=== PATIENT | male | born 1960 | race African-American/Black ===

== ENCOUNTER 2025-09-27 18:06 | Emergency (ER) | payer OTHER ==
[~2025-09-27] VITALS: Ht 188 cm; Wt 113.5 kg
[2025-09-27 18:31] VITALS: PULSE 95; RESP 25; O2SAT 99
--- NOTE | 2025-09-27 18:46 | ED.PDOC ---
HPI (NEURO) HPI Comments 64-year-old male with a past medical history of hypertension has come via EMS from [facility] with chief complaints of tonic-clonic seizure. As per EMS patient was found having a seizure lasting 2 minutes, no tongue biting, no urinary incontinence with postictal state of confusion lasting about an hour. Patient was also unable to form words properly. Patient reports that he has never had a history of seizure in the past. Vitals in the EMS were BP 162/106, heart rate 106, SpO2 98% in room air and blood glucose level 148. On initial assessment, patient was A&O x4, in moderate distress, having difficulty speaking complete sentences, but was slowly able to report feeling that his tongue was getting heavy in the afternoon with slurring of speech and that he can not remember having a seizure activity. He denies any chest pain, shortness of breath, nausea, vomiting, headache, abdominal discomfort or any other symptoms. Patient has been dismissed from [facility]. He also reports not taking his antihypertensive medication for the past 2 days in [facility]. We are doing further workup. Chief Complaint: Seizure Time Seen by MD: 18:20 Reviewed Notes: Nurses Notes, Surgical Scrub Technician Notes, Medications, Allergies Information Source: Patient, Emergency Med Personnel Mode of Arrival: EMS Severity: Moderate Timing: Minutes Duration: Minutes Prehospital treatment: None Seizure Quality: Tonic-clonic Onset: At rest Circumstances: Spontaneous Symptoms: Difficulty talking Before: Normal After: Confusion History of: Hypertension Modifying factors: Nothing Associated Signs and Symptoms: None Past Medical History PAST MEDICAL HISTORY: HTN Surgical History: Denies all surgeries Family History Family History: Reviewed,noncontributory to illness Social History Smoker: Non-Smoker Alcohol: Occasionally (Reports drinking a few beers every 4 days) Drugs: Denies Drug Use Lives In: Home, Other (Patient was in [facility] when seizure activity occurred) Constitutional: denies: chills, diaphoresis, fatigue, fever, malaise, sweats, weakness, others EENTM: denies: blurred vision, double vision, ear bleeding, ear discharge, ear drainage, ear pain, ear ringing, eye pain, eye redness, hearing loss, mouth pain, mouth swelling, nasal discharge, nose bleeding, nose congestion, nose pain, photophobia, tearing, throat pain, throat swelling, voice changes, others Respiratory: denies: cough, hemoptysis, orthopnea, SOB at rest, shortness of breath, SOB with excertion, stridor, wheezing, others Cardiovascular: denies: chest pain, dizzy spells, diaphoresis, Dyspnea on exertion, edema, irregular heart beat, left arm pain, lightheadedness, palpitations, PND, syncope, others Gastrointestinal: denies: abdomen distended, abdominal pain, blood streaked bowels, constipated, diarrhea, dysphagia, difficulty swallowing, hematemesis, melena, nausea, poor appetite, poor fluid intake, rectal bleeding, rectal pain, vomiting, others Genitourinary: denies: burning, dysuria, flank pain, frequency, hematuria, incontinence, penile discharge, penile sore, pain, testicle pain, testicle swelling, urgency, others Neurological: reports: speech problems (Difficulty forming words), others (Reports tongue feels heavy); denies: dizziness, fainting, headache, left sided numbness, left sided weakness, numbness, paresthesia, pre-existing deficit, right sided numbness, right sided weakness, seizure, tingling, tremors, weakness Musculoskeletal: denies: back pain, gout, joint pain, joint swelling, muscle pain, muscle stiffness, neck pain, others Integumetry: denies: bruises, change in color, change in hair/nails, dryness, laceration, lesions, lumps, rash, wounds, others Allergic/Immunocompromised: denies: Difficulty Healing, Frequent Infections, Hives, Itching, others Hematologic/Lymphatic: denies: anemia, blood clots, easy bleeding, easy bruis ing, swollen glands, others Endocrine: denies: excessive hunger, excessive sweating, excessive thirst, exc essive urination, flushing, intolerance to cold, intolerance to heat, unexplained weight gain, unexplained weight loss, others Psychiatric: denies: anxiety, bipolar disorder, depression, hopeless, panic disorder, schizophrenia, sleepless, suicidal, others Physical Exam General Appearance: Mild Distress HEENT: Normal ENT Inspection, Other (Difficulty forming complete sentences) Neck: Full Range of Motion, Non-Tender, Normal, Normal Inspection Respiratory: No Accessory Muscle Use, No Respiratory Distress, Normal Breath Sounds, Other (No rhonchi, stridor or wheezing heard on auscultation) Cardiovascular: No Edema, No JVD, No Murmur Breast Exam: Deferred Gastrointestinal: No Organomegaly, Non Tender, No Pulsatile Mass, Normal Bowel Sounds Genitalia: Deferred Pelvic: Deferred Rectal: Deferred Extremities: Normal range of motion, Non-tender, No pedal edema Neurologic: Other (Decreased power in bilateral limbs 3/5, 5/5 in upper extremities, no facial drooping) Cerebellar Function: Unable to Test Reflexes: Normal Skin: Normal Color Lymphatic: Other (No cervical adenopathy palpated) Was a procedure done? Was a procedure done?: No Differential Diagnosis (SZ) Seizure: Psychogenic Seizure, Drug Ingestion, Other (Tonic-clonic seizure) X-Ray, Labs, Meds, VS Vital Signs Date Time Temp Pulse Resp B/P (MAP) Pulse Ox O2 Delivery O2 Flow Rate FiO2 09/27/25 20:31 153/88 09/27/25 20:08 90 09/27/25 20:00 98.1 99 13 153/88 (109) 98 98.1 09/27/25 19:55 171/103 09/27/25 19:15 13 98 Room Air* 0 21 09/27/25 18:50 93 24 153/92 (112) 99 09/27/25 18:31 98.2 95 25 171/108 (129) 99 98.2 09/27/25 18:31 95 25 99 Room Air* 0 21 09/27/25 18:31 98.9 102 16 162/106 95 98.9 Lab Test 09/27/25 19:59 09/27/25 18:42 Range/Units Urine Color Light-yellow Yellow Urine Clarity Clear Clear Urine pH 6.5 5.0-9.0 Urine Specific [place] 1.015 1.001-1.035 Urine Protein 1+ H Negative Urine Ketones 2+ H Negative Urine Blood Negative Negative /uL Urine Nitrite Negative Negative Urine Bilirubin Negative Negative Urine Urobilinogen Normal Negative mg/dL Urine Leukocyte Esterase Negative Negative /uL Urine RBC 1 0 - 3 /hpf Urine Microscopic WBC < 1 0-3 /HPF Urine Squamous Epithelial Cells None seen <5 /hpf Urine Bacteria None seen None Seen /hpf Urine Mucus Few None Seen Urine Glucose Normal Normal mg/dL Urine Opiates Screen Neg NEGATIVE Urine Fentanyl Screen Neg NEGATIVE Urine Barbiturates Screen Neg NEGATIVE Urine Phencyclidine Screen Neg NEGATIVE Urine Amphetamines Screen Neg NEGATIVE Urine Benzodiazepines Screen Neg NEGATIVE Urine Cocaine Screen Neg NEGATIVE Urine Cannabinoids Screen Neg NEGATIVE White Blood Count 5.9 4.4-10.8 10^3/uL Red Blood Count 5.39 4.5-5.90 10^6/uL Hemoglobin 15.7 13.5-17.5 g/dL Hematocrit 47.2 41.0-53.0 % Mean Corpuscular Volume 87.6 80.0-100.0 fL Mean Corpuscular Hemoglobin 29.1 28.0-32.0 pg Mean Corpuscular Hemoglobin Concent 33.2 32.0-36.0 g/dL Red Cell Distribution Width 14.9 H 11.8-14.3 % Platelet Count 213 140-450 10^3/uL Mean Platelet Volume 7.7 6.9-10.8 fL Neutrophils (%) (Auto) 45.1 37.0-80.0 % Lymphocytes (%) (Auto) 43.6 10.0-50.0 % Monocytes (%) (Auto) 10.3 0.0-12.0 % Eosinophils (%) (Auto) 0.4 0.0-7.0 % Basophils (%) (Auto) 0.6 0.0-2.0 % Neutrophils # (Auto) 2.6 1.6-8.6 10 ^3/uL Lymphocytes # (Auto) 2.6 0.4-5.4 10 ^3/uL Monocytes # (Auto) 0.6 0-1.3 10 ^3/uL Eosinophils # (Auto) 0 0-0.8 10 ^3/uL Basophils # (Auto) 0 0-0.2 10 ^3/uL Nucleated Red Blood Cells 0.1 % Sodium Level 140 136-145 mmol/L Potassium Level 3.6 3.5-5.1 mmol/L Chloride Level 104 98-107 mmol/L Carbon Dioxide Level 23 20-31 mmol/L Anion Gap 13 5-15 Blood Urea Nitrogen 13 9-23 mg/dL Creatinine 1.14 0.700-1.30 mg/dL Glomerular Filtration Rate Calc 72 >90 mL/min BUN/Creatinine Ratio 11.4 10.0-20.0 Serum Glucose 116 H 74-106 mg/dL Calcium Level 10.6 H 8.7-10.4 mg/dL Current Medications Medications (Trade) Dose Ordered Sig/Collin Route Start Time Stop Time Status Last Admin Clonidine HCl (Catapres Tablet) 0.1 mg ONCE ONCE PO 09/27/25 18:45 09/27/25 19:30 DC 09/27/25 19:55 The EKG shows sinus rate of 90 with LAE and poor R-wave progression The patient's CBC is within normal limits The chemistry panel is within normal limits The patient was somewhat hypertensive so was given clonidine 0.1 mg p.o. At this time, we feel that the patient can be safely discharged The patient will return to the emergency department's condition worsens The patient understands and agrees with the management Images Reviewed?: Images reviewed and evaluated by me Time of 1ST Reevaluation: 19:25 Reevaluation 1ST: Improved Patient Education/Counseling: Diagnosis, Treatment, Prognosis, Need For Follow Up Family Education/Counseling: No Family Present Comments Patient came in with tonic-clonic seizure activity in [facility]. He had high blood pressure on admission and was given clonidine 0.[address] head was done which shows No CT evidence of an acute intracranial abnormality. CBC was within normal limits, BMP is normal except for calcium levels 10.6. Patient is stable and can be discharged. He has been asked to follow up with his primary care physician and to return if there is any other seizure activity. Departure 1 Departure Time of Disposition: 20:30 Impression: Primary Impression: Psychogenic nonepileptic seizure Disposition: HOME / SELF CARE / HOMELESS Condition: Stable Discharged With: Self Critical Care Note Critical Care Time?: No Stability Stability form required: No Heart Score Heart Score: Heart Score Response (Comments) Value History N/A 0 EKG N/A 0 Age N/A 0 Risk Factors N/A 0 Troponin N/A 0 Total 0 MORGAN LOPEZ Sep 27, 2025 18:46 VICKY APODACA MD Sep 27, 2025 20:18
[2025-09-27 18:52] LABS: Hematocrit 47.2 % (41.0-53.0); Hemoglobin 15.7 g/dL (13.5-17.5); Mean Corpuscular Hemoglobin 29.1 pg (28.0-32.0); Mean Corpuscular Volume 87.6 fL (80.0-100.0); Nucleated Red Blood Cells % 0.1 %
[2025-09-27 19:09] LABS: Chloride 104 mmol/L (98-107); Potassium 3.6 mmol/L (3.5-5.1); Sodium 140 mmol/L (136-145)
[2025-09-27 19:10] LABS: Anion Gap 13 (5-15); Carbon Dioxide 23 mmol/L (20-31)
[2025-09-27 19:15] VITALS: RESP 13; O2SAT 98
[2025-09-27 19:15] LABS: BUN/Creatinine Ratio 11.4 (10.0-20.0); Blood Urea Nitrogen 13 mg/dL (9-23)
[2025-09-27 19:26] LABS: Calcium 10.6 mg/dL (8.7-10.4); Glucose 116 mg/dL (74-106)
--- NOTE | 2025-09-27 19:33 | DVH ---
EXAM: CT HEAD WITHOUT CONTRAST INDICATION: seizure TECHNIQUE: CT images of the head were obtained without administration of IV contrast. CT scans at this facility use dose modulation, iterative reconstruction, and/or weight based dosing when appropriate to reduce radiation dose to as low as reasonably achievable. COMPARISON: None FINDINGS: PARENCHYMA: No acute hemorrhage. There is no mass effect, midline shift, or herniation. There is preservation of the mcneil white differentiation. Mild scattered hypoattenuation along the periventricular, centrum semiovale, and deep white matter tracts, which are nonspecific however statistically most likely represent chronic microvascular ischemic change. VENTRICLES: No hydrocephalus. EXTRA-AXIAL SPACES: No extra-axial fluid collections. OTHER: The bony structures are intact. Visualized portions of the paranasal sinuses and mastoid air cells are clear. IMPRESSION: 1. No CT evidence of an acute intracranial abnormality.
[2025-09-27 20:00] VITALS: BP 153/88; RESP 13; TEMP 98.1; O2SAT 98
[2025-09-27 20:08] VITALS: PULSE 90
[2025-09-27 20:23] LABS: Urine Protein, UAD 1+ (Negative)
[2025-09-27 20:43] LABS: Amphetamine Screen, Urine Neg (NEGATIVE); Barbiturate Scree,Urine Neg (NEGATIVE); Benzodiazephine Screen, Urine Neg (NEGATIVE); Cannabinoid Screen, Urine Neg (NEGATIVE); Cocaine Screen, Urine Neg (NEGATIVE); Opiate Scree,Urine Neg (NEGATIVE); Phencyclidine Screen, Urine Neg (NEGATIVE)
--- NOTE | 2025-09-29 03:48 | ECG ---
[facility] Test Date: 2025-09-27 Test Time: 20:08:37 Pat Name: KENDALL LEE Department: ED Room: Gender: M [employer] D[employer] Consultant: : [id number] Requested By: MORGAN LOPEZ Order Number: [id number] Reading MD: Filipe Llamas Measurements Intervals [place] Rate: 90 P: 53 [place]: 191 QRS: -8 QRSD: 88 T: 32 QT: 355 QTc: 435 Interpretive Statements Sinus rhythm Consider left atrial enlargement Abnormal R-wave progression, early transition Left ventricular hypertrophy Inferior infarct, old Electronically Signed On 10-05-2025 18:38:52 PST by Filipe Llamas Please click the below link to view image of tracing.
== END 2025-09-27 20:50 | disposition home or self-care (01) ==
LOC: EDBD 18:06 → ER 18:06
DX: F44.5 Conversion disorder with seizures or convulsions (principal); F10.90 Alcohol use, unspecified, uncomplicated; I10 Essential (primary) hypertension; Y90.9 Presence of alcohol in blood, level not specified
CPT/HCPCS: 36415; 70450; 80048; 80307; 81001; 85025; 93005